=== PATIENT | female | born 1980 | race African-American/Black ===

== ENCOUNTER 2016-07-28 16:45 | Emergency (ER) | payer OTHER ==
--- NOTE | ~2016-07-28 | CR127 ---
[facility] A Service of [facility] RADIOLOGY TEXT RESULTS PATIENT: BIANCA DORSEY LOCATION: CFTX : 78 UNIT #: [id number] AGE: [address]: Gwendolyn Mcmahon SEX: F ORDER DR: [id number] [facility] [address] [place], [place] [address] [id number] MR#: [id number] Acc #: [id number] NAME: BIANCA DORSEY : 1980 SEX: F STUDY DATE/TIME: 07/28/2016 16:34 UNIT: [facility] ROOM: STUDY DESCRIPTION: CR Foot Complete Min 3 View Rt Attending Physician: Gwendolyn Mcmahon P.A.-C. Ordering Physician: Gwendolyn Mcmahon P.A.-C. Primary Care Physician: Primary Care Physician No MEDICAL IMAGING REPORT This report is preliminary unless electronic signature is present EXAM Right foot. HISTORY Right foot pain and swelling for 3 days after hitting a bed pole. FINDINGS The tarsal, metatarsal, and phalangeal elements are all anatomically normal in position and alignment. There are no articular defects. No fractures or radiopaque foreign bodies in the soft tissues are apparent. IMPRESSION Normal right foot. Dictated by... Quan Cook M.D. THIS IS AN ELECTRONICALLY VERIFIED REPORT Quan Cook M.D. at 07/29/2016 9:22 AM ANANDA/rosa TD: 07/29/2016 06:24 JOB #: [id number] MEDICAL IMAGING REPORT COPY
[~2016-07-28 16:45] MED LIST: AMOXICILLIN875 MG PO; PERCOCET 5-3251 TAB PO
== END 2016-07-28 17:14 | disposition home or self-care (01) ==
LOC: CFTX 16:45
DX: S93.524A Sprain of metatarsophalangeal joint of right lesser toe(s), initial encounter (principal); F17.210 Nicotine dependence, cigarettes, uncomplicated; W22.8XXA Striking against or struck by other objects, initial encounter; Y92.009 Unspecified place in unspecified non-institutional (private) residence as the place of occurrence of the external cause
CPT/HCPCS: 29515; 73630; 99283

== ENCOUNTER 2016-07-29 10:36 | Emergency (ER) | payer OTHER | END 2016-07-29 11:10 | disposition home or self-care (01) | LOC: CFTX 10:36 | DX: L03.115 Cellulitis of right lower limb (principal); F17.210 Nicotine dependence, cigarettes, uncomplicated | CPT/HCPCS: 84703; 99282 ==

== ENCOUNTER 2017-01-08 12:17 | Emergency (ER) | payer OTHER ==
[~2017-01-08] VITALS: Ht 157.5 cm; Wt 81.6 kg
== END 2017-01-08 13:54 | disposition home or self-care (01) ==
LOC: CED 12:17
DX: H92.01 Otalgia, right ear (principal); F17.200 Nicotine dependence, unspecified, uncomplicated
CPT/HCPCS: 99282